=== PATIENT | female | born 1955 | race Caucasian/White ===

== ENCOUNTER 2025-05-01 08:02 | Outpatient (CLI) | payer MEDICARE, SELFPAY ==
--- NOTE | ~2025-05-01 | MR_ITS ---
MRI of the right femur CLINICAL HISTORY: Mass with swelling TECHNIQUE: T1-weighted and STIR imaging was performed in the axial, coronal, and sagittal planes. Fol lowing intravenous administration of 14 cc MultiHance gadolinium, T1-weighted fat-sat imaging was per formed in the axial and coronal planes. FINDINGS: Visualized osseous structures are intact. No bone marrow signal abnormality seen. No fractu re, osteomyelitis, or bone marrow edema. No periosteal reaction. Visualized joint spaces are grossly intact, without joint effusion. Visualized musculature in the right thigh is intact. No muscle atrophy or edema. Visualized tendons a re intact. No soft tissue mass or fluid collection seen. No abnormal mass seen at the location of the marker. No abnormal postcontrast enhancement identified. IMPRESSION: No significant abnormality seen. Reviewed, dictated and finalized at location .
--- OUTSIDE RECORDS SUMMARY | 2025-05-01 08:12 | XMS_ITS | Clinical Summary ---
Author Organization [facility] Address [address] [place] [address] Care Team Providers Care Specialty Sales Consultant Name Role Phone Lucille Domínguez MD Primary Care Provider [phone] Allergies Active Allergy Reactions Criticality Noted Date Comments Penicillins Rash Low 08/04/2022 Medications ubidecarenone (COENZYME Q10 ORAL) Take 1 Tablet by mouth daily. Active aspirin 81 mg tablet,delayed release Take 81 mg by mouth daily. Active biotin 2,500 mcg capsule Take 1 Capsule by mouth daily. Active calcium carbonate 500 mg calcium (1,250 mg) tablet Take 1 Tablet by mouth daily. Active krill oil 500 mg Capsule every 24 hours. Active cholecalciferol (vitamin D3) 125 mcg (5,000 unit) tablet Take 5,000 Units by mouth daily. Active rosuvastatin (Crestor) 5 mg tablet Take 1 Tablet (5 mg) by mouth daily. 100 Tablet 3 10/05/2024 Active doxycycline hyclate (VIBRAMYCIN) 100 mg capsule Take 1 Capsule by mouth 2 times daily. 03/13/2025 Active Active Problems Patient Care Coordination No te Formatting of this note migh t be different from the original. CARDIOLOGY - Harjit Pittman MD, [facility], [facility] [address] Direct Team Line: [phone] P: [phone] F: [phone] Problem Noted Date Diagnosed Date Mass of soft tissue of thigh 01/05/2025 Pre-diabetes 12/15/2024 Vitamin D deficiency 12/24/2023 Assessment & Plan (12/24/2023 7:54 PM CDT): Continue OTC Vit D3 Primary osteoarthritis of both hips 12/23/2023 Assessment & Plan (12/23/2023 5:31 PM CDT): She was encouraged to stay active. She will continue to follow up with her chiropractor. Aneurysm of ascending aorta without rupture 11/27 Assessment & Plan (12/24/2023 7:54 PM CDT): Stable. Being monitored by Cardiology annually. Tinnitus of both ears 12/17/2022 Assessment & Plan (12/24/2023 7:54 PM CDT): This has been stable, pt has mild hearing loss Heart palpitations 12/16/2022 Assessment & Plan (12/24/2023 7:54 PM CDT): These have been stable and are benign. History of seizure disorder 10/27/2022 Mixed hyperlipidemia 08/04/2022 Assessment & Plan (12/24/2023 7:54 PM CDT): Continue rosuvastatin, will be doing follow up labs in January. Resolved Problems Problem Noted Date Diagnosed Date Resolved Date Syncope 10/23/2022 12/16/2022 Elevated troponin 10/23/2022 12/16/2022 Leukocytosis 10/23/2022 10/26/2022 Current moderate episode of major depressive disorder without prior episode 08/04/2022 Generalized anxiety disorder 08/04/2022 12/17/2022 Encounters Date Type Department Care Team Description 03/20/2025 Telephone [facility] [place] [address] [place] [address] Lucille Domínguez MD OTHER 03/17/2025 2:00 PM CDT Office Visit [facility] [place] [address] [place] [address] Mariajose Taylor PA Mass of right thigh (Primary Dx) 03/02/2025 External Device Data Initial Department [address] ATTN: [place] [address] [facility] 02/15/2025 External Device Data [facility] ABSTRACTION Provider, Abstract 02/14/2025 External Device Data [facility] ABSTRACTION Provider, Abstract 02/13/2025 3:32 PM CDT - 02/13/2025 11:59 PM CDT Hospital Encounter [facility] Imaging Services [facility] [address] [place] [address] Winston Estrada MD Discharge Disposition: Home or Self Care 02/13/2025 External Device Data Initial Department [address] [facility] ATTN: [place] [address] [facility] 01/31/2025 Orders Only [facility] [phone] [place] [address] Winston Estrada MD Mass of soft tissue of thigh (Primary Dx) from Last 3 Months Immunizations Immunization Administration Dates Next Due (ADACEL/BOOSTRIX)(10 YR UP) TDAP VACCINE, 0.5ML, IM 12/25/2014,07/31/2005 (M-M-R II/PRIORIX)(12 MO UP) MEASLES, MUMPS AND RUBELLA VIRUS VACCINE, 0.5 ML IM/SUBCUT 02/05/2015,12/25/2014 (PFIZER)(12 YR UP) COVID-19 VACCINE - EMERGENCY USE AUTHORIZATION, MRNA, [id number](PF) 30 MCG/0.3 ML IM SUSP 04/28/2021 (PNEUMOVAX 23)(50 YRS UP) PN EUMOCOCCAL POLYSACCHARIDE (PPV23) 0.5 ML, IM 09/29/2019 (PREVNAR 13)(6 WKS UP) PNEUM OCOCCAL CONJUGATE (PCV13) 0.5 ML, IM 09/29/2018 (PREVNAR 20)(6 WKS UP) PNEUM OCOCCAL CONJUGATE VACCINE 20-VALENT (PCV20), POLYSACCHARIDE [id number] CONJUGATE, ADJUVANT 0.5 ML (PF) IM 12/17/2022 (SHINGRIX)(50 YRS UP) ZOSTER VACCINE RECOMBINANT, 0.5 ML, IM 05/29/2021,11/24/2020,08/02/2020,11/26 INFLUENZA VACCINE HIGH DOSE QUADRIVALENT 65 YR UP PF IM 09/03/2022 INFLUENZA VACCINE QUADRIVALE NT 6 MOS UP IM 07/29/2020 INFLUENZA VACCINE QUADRIVALE NT 6 MOS UP PF IM 06/28/2019,09/06/2018 Influenza Seasonal Unspecifi ed Formulation IM 07/19/2024,06/09/2023,09/04/2022 Influenza Seasonal Unspecifi ed Formulation PF IM 06/25/2017 Influenza Vaccine 18+ C.derived Pf Im 07/20/2016 Influenza, Unspecified Formulation 07/12,07/02/2014,06/21/2013,07/31 Zoster Vaccine Live SQ 10/02/2015 Family History Medical History Relation Name Comments No Known Problems Brother 1 No Known Problems Brother 2 No Known Problems Daughter 1 No Known Problems Daughter 2 Heart Disease Father Winston Gaines High Cholesterol Father Winston Gaines Hypertension Father Winston Gaines Diabetes Mother Mally Gaines Hypertension Mother Mally Gaines Thyroid Disease Mother Mally Gaines No Known Problems Sister No Known Problems Son Relation Name Status Comments Brother 1 Alive Brother 2 Alive Daughter 1 Alive Daughter 2 Alive Father Winston Gaines Alive Mother Mally Gaines Alive Sister Alive Son Alive Social History Tobacco Use Types Packs/Day Years Used Date Smoking Tobacco: Never Smokeless Tobacco: Never Tobacco Cessation:Counseling Given: Not Answered Alcohol Use Standard Drinks/Week Comments Yes 2 (1 standard drink = 0.6 oz pur e alcohol) Comments No Sex and Gender Information Value Date Recorded Sex Assigned at Female 12/22/2023 4:56 PM CDT Legal Sex Female 11:07 AM CDT Gender Identity Female 12/22/2023 4:56 PM CDT Sexual Orientation Choose not to disclose 2023 4:56 PM CDT Last Filed Vital Signs Vital Sign Reading Time Taken Comments Blood Pressure 122/80 03/17/2025 1:58 PM CDT Pulse 66 03/17/2025 1:58 PM CDT Temperature 36.4 C (97.6 F) 10/23/2022 1:50 AM INSTRUMENT ASSEMBLER Respiratory Rate 16 01/05/2025 7:51 AM CDT Oxygen Saturation 97% 03/17/2025 1:58 PM CDT Inhaled Oxygen Concentration - - Weight 71.7 kg (158 lb) 03/17/2025 1:58 PM CDT Height 175.3 cm (5' 9) 03/17/2025 1:58 PM CDT Body Mass Index 23.33 03/17/2025 1:58 PM CDT Plan of Treatment Upcoming Encounters Date Type Department Care Team (Late st Contact Info) Description 11/27/2025 8:15 AM INSTRUMENT ASSEMBLER Appointment [facility] Vascular Testing [address] [place] [address] [place] [address] [facility] [address] [place] [address] 12/14/2025 8:00 AM CDT Office Visit [facility] [place] [address] [place] [address] Lucille Domínguez MD [address] [place] [address] Health Maintenance Due Date Last Done Comments FIT/ DNA Q 3 YEARS (AUTO ORDER) 1973 FLEX SIG/CT COLONOGRAPHY Q 5 YEARS (AUTO ORDER) 1973 FIT-DNA Q 3 years 2000 Flex Sig/CT Colonography Q 5 years 2000 FIT/FOBT Q 1 YEAR (AUTO ORDER) 10/06/2023 10/06/2022 , 10/06/2022 FIT/FOBT Q 1 year 10/06/2023 10/06/2022 COVID-19 Vaccine (2 - 2023-2 5 season) 2024 04/28/2021 DTAP/TDAP/TD VACCINES (3 - T d or Tdap) 12/25/2024 12/25/2014, 07/31/2005 INFLUENZA VACCINE (#1) 2025 , 06/09/2023, 09/04/2022, Additional history exists OSTEOPOROSIS SCREENING 08/14/2025 08/14/2020 Traditional Medicare (ACO) A nnual Wellness Visit 12/16/2025 12/15/2024, 12/23/2023, 12/17/2022 BREAST CANCER SCREENING 12/22/2025 12/23/19 25, 11/04/2023, 11/04/2023, Additional history exists RSV VACCINE (60+ or ) (1 - 1-dose 75+ series) 2030 COLORECTAL CANCER SCREENING (AUTO ORDER) 01/16/2032 01/15/2022, 09/29/2011, 09/28/2011 COLORECTAL SCREENING 01/16/2032 01/15/2022, 09/29/2011, 09/28/2011 Colorectal Cancer Screening (AUTO ORDER) 01/16/2032 Colorectal Cancer Screening 01/16/2032 ZOSTER VACCINE Completed 05/29/2021, 10/30, 08/02/2020, Additional history exists PNEUMOCOCCAL VACCINE 50+ YEARS Completed 0 12/17/2022, 09/29/2019, 09/29/2018 Procedures Procedure Name Priority Date/Time Associated Diagnosis Comments CT ABDOMEN PELVIS WO CONTRAST Routine 02/13/2025 4:30 PM CDT Mass of soft tissue of thigh MAMMO 3D WIN SCREEN BILAT W OR WO CAD Routine 12/22/2024 7:41 AM CDT Encounter for mammogram to establish baseline mammogram OCCULT BLOOD IMMUNOASSAY, COLORECTAL SCREEN Routine 10/06/2022 12:00 AM INSTRUMENT ASSEMBLER Screening for colon cancer COLONOSCOPY REPORT Routine 01/15/2022 11 :24 AM CDT HM DEXA SCAN Routine 08/14/2020 from Last 3 Months or Most Recently Relevant to Health Maintenance Results * CT ABDOMEN PELVIS WO CONTRAST (02/13/2025 4:30 PM CDT) Anatomical Region Laterality Modality Abdomen Computed Tomogra phy 02/13/2025 4:30 PM CDT Impressions 02/13/2025 4:46 PM CDT IMPRESSION: 1. The palpable right thigh mass corresponds with marked asymmetric enlargement of the right tensor fascia dimitri muscle. The possibility of myositis. This less likely represents intramuscular hemorrhage or mass lesion. If clinical findings are equivocal, consider MRI of the right hip without and with contrast. 2. A single loop of jejunum is mildly distended with stool-like material. 3. Constipation. 4. Stable right hepatic hemangioma. The examination was performed with the adjustment of mA according to the patient size and/or the use of Iterative Reconstruction Technique. DICTATION LOCATION: Location [address] [place] [address] 02/13/2025 4:46 PM CDT EXAMINATION: CT ABDOMEN PELVIS WO CONTRAST DATE: 02/13/2025 4:30 PM HISTORY: Abdominal pain, acute, thigh soft tissue mass FINDINGS: Transverse abdomen and pelvis sections are obtained without contrast and compared with the January 19, 2023 scan. A 2.4 x 3.1 cm liver segment 7 hemangioma, minimal aortic atherosclerosis, and mild multilevel lumbar spondylosis have not significantly changed. Other caliber and wall thickness are normal. Common bile duct diameter is normal. The pancreas, adrenals, spleen, kidneys, stomach, small bowel, and mesentery are unremarkable except for a single loop of jejunum containing stool-like material. Mild constipation is observed. The appendix is normal. Pelvic sections reveal mild sigmoid constipation. The urinary bladder, uterus, ovaries, and distal small bowel are unremarkable. The osseous pelvis is intact. Moderate left hip osteoarthritis is present. Upper thigh sections reveal marked asymmetric enlargement of the right tensor fascia dimitri muscle compared to the left. At its maximal size it measures 3.5 x 5.5 cm compared to 2 x 4.1 cm on the left. The remaining muscles are unremarkable. There is no discrete intramuscular mass as the fat planes between the muscle fascicles superior relatively preserved. Procedure Note Ruslan Marte MD - 02/13/2025 EXAMINATION: CT ABDOMEN PELVIS WO CONTRAST DATE: 02/13/2025 4:30 PM HISTORY: Abdominal pain, acute, thigh soft tissue mass FINDINGS: Transverse abdomen and pelvis sections are obtained without contrast and compared with the January 19, 2023 scan. A 2.4 x 3.1 cm liver segment 7 hemangioma, minimal aortic atherosclerosis, and mild multilevel lumbar spondylosis have not significantly changed. Other caliber and wall thickness are normal. Common bile duct diameter is normal. The pancreas, adrenals, spleen, kidneys, stomach, small bowel, and mesentery are unremarkable except for a single loop of jejunum containing stool-like material. Mild constipation is observed. The appendix is normal. Pelvic sections reveal mild sigmoid constipation. The urinary bladder, uterus, ovaries, and distal small bowel are unremarkable. The osseous pelvis is intact. Moderate left hip osteoarthritis is present. Upper thigh sections reveal marked asymmetric enlargement of the right tensor fascia dimitri muscle compared to the left. At its maximal size it measures 3.5 x 5.5 cm compared to 2 x 4.1 cm on the left. The remaining muscles are unremarkable. There is no discrete intramuscular mass as the fat planes between the muscle fascicles superior relatively preserved. IMPRESSION: 1. The palpable right thigh mass corresponds with marked asymmetric enlargement of the right tensor fascia dimitri muscle. The possibility of myositis. This less likely represents intramuscular hemorrhage or mass lesion. If clinical findings are equivocal, consider MRI of the right hip without and with contrast. 2. A single loop of jejunum is mildly distended with stool-like material. 3. Constipation. 4. Stable right hepatic hemangioma. The examination was performed with the adjustment of mA according to the patient size and/or the use of Iterative Reconstruction Technique. DICTATION LOCATION: [address] Winston Estrada MD CT ORDERABLES Final R esult * MAMMO 3D WIN SCREEN BILAT W OR WO CAD (12/22/2024 7:41 AM CDT) Anatomical Region Laterality Modality Breast Bilateral Mammography 12/22/2024 7:42 AM CDT Impressions 12/22/2024 8:46 AM CDT IMPRESSION: No mammographic evidence of malignancy. RECOMMENDATIONS: Routine screening mammogram in one year. DICTATION LOCATION: [facility] Narrative 12/22/2024 8:46 AM CDT MAMMO 3D WIN SCREEN BILAT W OR WO CAD DATE: 12/22/2024 7:41 AM HISTORY: Routine screening. TECHNIQUE: Full-field digital craniocaudal and mediolateral oblique projections of both breasts were obtained. Low-dose full-field digital breast tomosynthesis examination was performed with 3D acquisitions. Examination is read in conjunction with computer aided detection. COMPARISON: Mammograms dating back to 2019 BREAST COMPOSITION: The breasts are heterogeneously dense, which may obscure small masses. FINDINGS: No suspicious mass, suspicious microcalcifications, or architectural distortion in either breast is identified. Since the prior study, there has been no significant interval change. The computer aided diagnosis detects no significant abnormality. OVERALL FINAL ASSESSMENT: BI-RADS CATEGORY 1 : Negative us Lucille Domínguez MD MAMMO ORDERABLES Final Result * OCCULT BLOOD IMMUNOASSAY, COLORECTAL SCREEN (10/06/2022 12:00 AM INSTRUMENT ASSEMBLER) FECAL GLOBIN SEE NOTE [employer] [place] Comment: FECAL GLOBIN BY IMMUNOCHEMISTRY Micro Number: [id number] Test Status: Final Specimen Source: Stool Specimen Quality: Adequate Fecal Globin: Not Detected Test Performed at[facility] [address] [facility] [place] [address] Ruslan Garcia D.O., MPH Stool STOOL SPECIMEN / Unknown 10/06/2022 10/14/2022 4:00 PM INSTRUMENT ASSEMBLER Lucille Domínguez MD BODY FLUIDS AND STOOLS Final R esult Performing Organization Address [facility] Co de Phone Number [facility] [phone] [facility] [address] [address] [facility] [place] [address] * COLONOSCOPY REPORT (01/15/2022 11:24 AM CDT) us Abstract Provider GI PROCEDURE ORDERABLES Final Result Performing Organization Address [facility]/ZIP Co de Phone Number [facility] CLIA# [id number] [facility] [place] [address] * HM DEXA SCAN (08/14/2020) Abstract Provider HEALTH MAINTENANCE Edited Resu lt - Final Performing Organization Address [facility]/ZIP Co de Phone Number [facility] CLIA# [id number] [address] [place] [phone] from Last 3 Months or Most Recently Relevant to Health Maintenance Insurance MEDICARE PART A AND B JUVENAL PEDRAZA HARJINDER [place] [id number] MEDICARE PART A AND B Advance Directives For more information, please contact: [phone] * Full Code (Latest Code Status on File) Date Activated Date Inactivated Comments 10/23/2022 9:00 AM 10/23/2022 5:32 PM Care Teams Specialty Sales Consultant Relationship Specialty Start Date End Date Lucille Domínguez MD [address] [place] [id number] PCP - General Family Practice 08/04/22
== END 2025-05-01 08:03 | disposition home or self-care (01) ==
PROVIDERS: Visit Provider Surgery
DX: R22.41 Localized swelling, mass and lump, right lower limb (principal)
CPT/HCPCS: 73720; A9577